=== PATIENT | female | born 1940 | race Caucasian/White ===

== ENCOUNTER → 2016-10-22 | Outpatient (CLI) | payer MEDICARE, MEDICAID ==
[~2016-10-22] MED LIST: ASPIRIN FOR CHI81 MG PO; ELIQUIS2.5 MG PO; LATANOPROST 2.2.5 ML OP; LISINOPRIL 20MG20 MG PO; LISINOPRIL HCTZ1 TAB PO; LORTAB 5/3251 TAB PO; SENNA DOCUSATE1 TAB PO
--- NOTE | 2016-10-23 12:42 | RADIOLOGY REPORT PS360 ---
CT EXT.UPPER-LT-W/O CONTRAST CLINICAL INDICATION: With moderate impaction of the fracture fragments. There is CLOSED FX PROXIMAL END OF LEFT HUMERUS COMPARISON: None FINDINGS: There is a severely comminuted fracture involving the neck of the humerus. There is foreshortening of the fracture fragment by approximately 2 cm. This fracture may be pathologic as there is a area of decreased attenuation within the humeral head and proximal femoral neck. A lytic lesion in the humeral head cannot be excluded. There is diffuse increased soft tissue density about the left shoulder consistent with hemorrhage along with stranding of the subcutaneous fat. IMPRESSION: Severely comminuted left humeral neck fracture. Fracture shows moderate impaction. A lucent lesion suspected of the left humeral head indicating fracture may be pathologic. Consider whole body bone scan to determine if there are any other lytic lesions
== END ==
LOC: RAD 10:20
DX: S42.202A Unspecified fracture of upper end of left humerus, initial encounter for closed fracture (principal)

== ENCOUNTER → 2016-10-31 | Outpatient (CLI) | payer MEDICARE, MEDICAID ==
[2016-10-31 11:09] LABS: ABO BLOOD TYPE A; RH BLOOD TYPE POSITIVE
== END ==
LOC: LAB 09:37
PROVIDERS: Orthopaedic Surgery
DX: Z01.810 Encounter for preprocedural cardiovascular examination (principal); Z01.811 Encounter for preprocedural respiratory examination; Z01.812 Encounter for preprocedural laboratory examination

== ENCOUNTER → 2016-11-24 | Outpatient (CLI) | payer MEDICARE, MEDICAID ==
--- NOTE | 2016-11-24 18:34 | RADIOLOGY REPORT PS360 ---
HUMERUS-LT ORDERING PHYSICIAN : ANASTASIIA WATTS MD PATIENT AGE: 76 years GENDER: Female INDICATION: FU FX PROXIMAL HUMERUS TECHNIQUE: 2 view left humerus COMPARISON: FINDINGS Previous ORIF left proximal humerus fracture metallic plate secured by multiple screws providing fixation to impacted comminuted fracture at the anatomical neck of humerus. There is stable appearance since 11/01/2016. There seems to be bone cement along the fracture zone extending inferior to the fracture along with a osseous fragment medial to the proximal humerus. Stable position of fracture and fixation elements. Overall good position. Perhaps early healing medially AC joint arthropathy noted. Shaft and distal humerus included appear intact IMPRESSION: ORIF of the impacted comminuted fracture at the and anatomical neck of left humerus Stable position of fracture and fixation elements
== END ==
LOC: RAD 12:57
DX: S42.202D Unspecified fracture of upper end of left humerus, subsequent encounter for fracture with routine healing (principal)

== ENCOUNTER → 2017-08-10 | Outpatient (CLI) | payer MEDICARE, MEDICAID ==
[2017-08-10 15:55] LABS: LYMPH # 2.7 K/mm3 (0.7-4.5); LYMPH % 28.7 % (10-50.0)
[2017-08-10 16:02] LABS: HEMOGLOBIN 13.4 g/dL (12.2-16.2)
[2017-08-10 17:07] LABS: BUN 16 mg/dL (7-18)
[2017-08-10 17:12] LABS: GFR (ESTIMATED) 70 ML/MIN (59-)
== END ==
LOC: LAB 15:18
PROVIDERS: Nurse Practitioner Family
DX: I10 Essential (primary) hypertension (principal); Z87.81 Personal history of (healed) traumatic fracture; Z00.00 Encounter for general adult medical examination without abnormal findings; Z79.899 Other long term (current) drug therapy; E55.9 Vitamin D deficiency, unspecified